=== PATIENT | male | born 1970 | race Caucasian/White ===

== ENCOUNTER 2017-06-10 09:53 | Emergency (ER) | payer OTHER ==
[2017-06-10 10:23] LABS: BASOPHILS % (AUTO) 0.7 %; EOSINOPHILS # (AUTO) 0.3 10^3/uL (0.0-0.7); EOSINOPHILS % (AUTO) 4.9 %; HGB - HEMOGLOBIN 16.4 g/dL (14.0-18.0); LYMPHOCYTES # (AUTO) 1.5 10^3/uL (1.5-3.5); LYMPHOCYTES % (AUTO) 22.2 %; MEAN CORPUSCULAR HEMOGLOBIN 30.5 pg (27.0-31.0); MEAN CORPUSCULAR HGB CONC 34.8 g/dL (32.0-36.0); MEAN CORPUSCULAR VOLUME 87.8 fL (80.0-94.0); MEAN PLATELET VOLUME 6.9 fL (7.4-11.4); MONOCYTES # (AUTO) 0.5 10^3/uL (0.0-1.0); MONOCYTES % (AUTO) 6.8 %; NEUTROPHILS # (AUTO) 4.3 10^3/uL (1.5-6.6); NEUTROPHILS % (AUTO) 65.4 %; PLT - PLATELET COUNT 187 10^3/uL (130-450); RED BLOOD COUNT 5.37 10^6/uL (4.70-6.10); RED CELL DISTRIBUTION WIDTH 12.6 % (12.0-15.0); WHITE BLOOD COUNT 6.6 x10^3/uL (4.8-10.8)
[2017-06-10 10:30] LABS: ALBUMIN 4.2 g/dL (3.2-5.5); ALBUMIN/GLOBULIN RATIO 1.3 (1.0-2.2); BILIRUBIN,TOTAL 0.9 mg/dL (0.2-1.0); CALCIUM 8.8 mg/dL (8.5-10.3); CREATININE 0.9 mg/dL (0.6-1.2); TOTAL PROTEIN 7.4 g/dL (6.7-8.2)
[2017-06-10] MEDS ORDERED: LIDOCAINE VISCOUS 2% 15 ML UDC MM STA (11:10)
[2017-06-10] MEDS ORDERED: MAG HYDROX/AL HYDROX/SIMETH 30 ML UDC PO STA (11:11)
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
[2017-06-10] MEDS ORDERED: KETOROLAC 60 MG/2 ML VIAL IM STA (12:28)
[2017-06-10] MEDS ORDERED: ONDANSETRON ODT 4 MG TABLET TL STA (12:36)
--- NOTE | 2017-06-10 13:55 | CT Report ---
EXAM: CT ABDOMEN AND PELVIS (CT KUB) EXAM DATE: 06/10/2017 01:36 PM. CLINICAL HISTORY: Lower abdomen and LUQ pain. COMPARISONS: None. TECHNIQUE: Routine axial helical CT imaging was performed through the abdomen and pelvis without IV c ontrast. Reconstructions: Coronal and sagittal. In accordance with CT protocol optimization, one or more of the following dose reduction techniques w ere utilized for this exam: automated exposure control, adjustment of mA and/or KV based on patient s ize, or use of iterative reconstructive technique. FINDINGS: Lung Bases: Mild bibasilar atelectasis. Right Kidney/Ureter: No stones, hydronephrosis, or hydroureter. No perinephric fat stranding. Left Kidney/Ureter: No hydroureter. No perinephric fat stranding. 6 mm left mid renal stone. Left renal pelvic fullness with 1.9 cm oblique AP dimension. Other Solid Organs: Noncontrast images of the solid organs are grossly unremarkable. Gallbladder/Bile Ducts: Unremarkable. Peritoneal Cavity: Mild diverticulosis. Splenic flexure, descending and sigmoid colon are collapsed w hich may be from peristalsis or spasm. Normal appendix with air-filled diameter measuring up to 9 mm. Pelvic Organs: No bladder stones or wall thickening. Noncontrast images of the visualized pelvic orga ns are unremarkable. Vasculature: Unremarkable. Other: Mild lumbar spine degenerative changes. IMPRESSION: 1. 6 mm left mid renal stone. Mild fullness of left renal pelvis, however no calyceal dilatation. No perinephric edema. 2. The splenic flexure, descending and sigmoid colon are collapsed which could be related to peristal sis or spasm. No dilated bowel to suggest obstruction. 3. Mild diverticulosis without convincing evidence for diverticulitis. [facility] Referring Provider Line: [phone] SITE ID: [id number]
[2017-06-10 14:55] LABS: BILIRUBIN,URINE NEGATIVE (NEGATIVE); GLUCOSE, URINE (UA) NEGATIVE (NEGATIVE); KETONES,URINE (UA) NEGATIVE (NEGATIVE); LEUKOCYTE ESTERASE, URINE NEGATIVE (NEGATIVE); NITRITE,URINE NEGATIVE (NEGATIVE); OCCULT BLOOD,URINE NEGATIVE (NEGATIVE); PROTEIN,URINE NEGATIVE (NEGATIVE); UROBILINOGEN,URINE 1 (NORMAL) E.U./dL (NORMAL)
[2017-06-10 14:57] LABS: CLARITY,URINE CLEAR (CLEAR)
[2017-06-10 15:30] VITALS: BP 137/100
== END 2017-06-10 15:30 | disposition home or self-care (01) ==
LOC: EDUNIT# → ED 09:53
DX: N13.2 Hydronephrosis with renal and ureteral calculous obstruction (principal); I10 Essential (primary) hypertension; Z87.891 Personal history of nicotine dependence
CPT/HCPCS: 36415; 74176; 80053; 81003; 83690; 84484; 85025; 93005; 96372; 99284; A9270; Q0162; 81001; 87086

== ENCOUNTER 2019-12-17 15:47 | Emergency (ER) | payer SELFPAY ==
[2019-12-17 15:52] VITALS: BP 178/110
--- NOTE | 2019-12-17 16:15 | ED Physician Documentation ---
History of Present Illness - Stated complaint Stated Complaint: EAR PLUGGED UP, EAR PAIN LEFT - Chief complaint Chief Complaint: Heent - History obtained from History obtained from: Patient (For the last week or so he cannot hear out of his left ear and there is pressure there. He is tried a number of home remedies including putting a vacuum strip cleaner on it without relief.) Review of Systems Constitutional: reports: Reviewed and negative Ears: reports: Loss of hearing, Ear pain, Reviewed and negative Nose: reports: Reviewed and negative PD PAST MEDICAL HISTORY - Past Medical History Cardiovascular: Hypertension Musculoskeletal: Chronic back pain - Past Surgical History Past Surgical History: Yes Ortho: Spine surgery - Present Medications Home Medications: Ambulatory Orders Medication Instructions Recorded Confirmed Dicyclomine [Bentyl] 06/10/17 - Allergies Allergies/Adverse Reactions: Allergies Allergy/AdvReac Type Severity Reaction Status Date / Time No Known Drug Allergies Allergy Verified 12/17/19 15:49 - Social History Does the pt smoke?: No Smoking Status: Never smoker Does the pt drink ETOH?: No Does the pt have substance abuse?: No - Immunizations Immunizations are current?: No PD ED PE NORMAL - Vitals Vital signs reviewed: Yes - General General: Alert and oriented X 3, No acute distress - HEENT HEENT: Other (He has cerumen impaction on the left) - Neck Neck: Supple, no meningeal sign, No bony TTP - Neuro Neuro: Alert and oriented X 3, Normal speech Results - Vitals Vitals: Vital Signs - 24 hr 12/17/19 15:49 Temperature 36.5 C Heart Rate 89 Respiratory 16 Rate Blood Pressure 178/110 H O2 Saturation 97 Oxygen O2 Source Room air Procedures - General procedure General procedure: Using syringe irrigation with warm water and peroxide the cerumen was easily removed and his symptoms were resolved. Departure - Departure Disposition: 01 Home, Self Care Clinical Impression: Excessive cerumen in left ear canal Condition: Good Record reviewed to determine appropriate education?: Yes Instructions: Earwax Impacted Comments: Your blood pressure was elevated today on check into the emergency department. This does not mean that you have hypertension, it is a common phenomenon to come to the emergency department and have elevated blood pressure. I recommend that you see your primary care physician within the week to have it rechecked when you are feeling better. Discharge Date/Time: 12/17/19 16:25
== END 2019-12-17 16:25 | disposition home or self-care (01) ==
LOC: ED 15:47
DX: H61.22 Impacted cerumen, left ear (principal); I10 Essential (primary) hypertension
CPT/HCPCS: 69209; 99281; 99283

== ENCOUNTER 2021-08-11 14:30 | Emergency (ER) | payer MEDICAID ==
[2021-08-11 14:46] VITALS: BP 163/104
[2021-08-11] MEDS ORDERED: HYDROcod/ACETAM 5/325 MG TABLET PO STA (15:22)
[2021-08-11] MEDS ORDERED: SULFAMETH/TRIMETH DS 800/160 MG TABLET PO STA (15:22)
[2021-08-11] MEDS ORDERED: cephALEXin 250 MG CAPSULE PO STA (15:22)
[2021-08-11] MEDS ORDERED: BACITRACIN ZINC OINT 1 PACKET TOP STA (15:22)
--- NOTE | 2021-08-11 15:25 | ED Physician Documentation ---
History of Present Illness - Stated complaint Stated Complaint: RT LEG PX - Chief complaint Chief Complaint: Wound - History obtained from History obtained from: Patient - History of Present Illness Timing: How many days ago (several) Pain level max: 8 Pain level now: 6 - Additonal information Additional information: 50-year-old male presents to the emergency department complaining of swelling and pain to the right knee. This started after kneeling on a driveway A few days ago. Gradually has developed increasing redness, swelling and pain. Tetanus up-to-date. Worse with palpation and movement, better with rest. Review of Systems Constitutional: denies: Fever, Chills GI: denies: Nausea, Vomiting, Diarrhea Skin: denies: Rash PD PAST MEDICAL HISTORY - Past Medical History Cardiovascular: Hypertension Musculoskeletal: Chronic back pain - Past Surgical History Past Surgical History: Yes Ortho: Spine surgery - Present Medications Home Medications: Ambulatory Orders Medication Instructions Recorded Confirmed Dicyclomine [Bentyl] 06/10/17 HYDROcod/ACETAM 5/325 [[place] 5/325] 1 - 2 ea PO Q6H PRN #14 tablet 08/11/21 Sulfamethox/Trimeth 800/160 1 each PO BID #14 tablet 08/11/21 [Bactrim Ds 800/160] cephALEXin [Keflex] 500 mg PO Q6H #28 cap 08/11/21 - Allergies Allergies/Adverse Reactions: Allergies Allergy/AdvReac Type Severity Reaction Status Date / Time No Known Drug Allergies Allergy Verified 08/11/21 14:46 - Social History Does the pt smoke?: No Smoking Status: Never smoker Does the pt drink ETOH?: No Does the pt have substance abuse?: No - Immunizations Immunizations are current?: No PD ED PE NORMAL - Vitals Vital signs reviewed: Yes - General General: Alert and oriented X 3, No acute distress - Derm Derm: Warm and dry - Extremities Extremities: Other (4 x 6 cm area of erythema to the anterior aspect of the right knee. Full range of motion of the knee. No joint space tenderness or effusion. There is a small pustule on the anterior aspect.) - Neuro Neuro: Alert and oriented X 3 Results - Vitals Vitals: Vital Signs - 24 hr 08/11/21 14:43 Temperature 36.0 C L Heart Rate 88 Respiratory 16 Rate Blood Pressure 163/104 H O2 Saturation 99 Oxygen O2 Source Room air Procedures - Abscess I&D (location) Right knee Preparation: Lidocaine 1% Incision: Incised with scalpel, Purulent drainage, Culture obtained Other: Pt tolerated well, Dressing applied PD MEDICAL DECISION MAKING - ED course Complexity details: reviewed results, re-evaluated patient, considered differential, d/w patient ED course: 50-year-old male with a right knee cellulitis as well as gravel that was stuck in an anterior wound. The knee was anesthetized with 1% lidocaine. Tolerated well. Excellent anesthesia. A scalpel was used to unroofed the area and the gravel was removed. Minimal drainage. A bandage was applied with topical antibiotics. Will place on oral antibiotics for home as well as pain medication. No evidence of septic joint. Patient states his tetanus is up-to-date. Patient counseled regarding signs and symptoms for which I believe and urgent re-evaluation would be necessary. Patient with good understanding of and agreement to plan and is comfortable going home at this time This document was made in part using voice recognition software. While efforts are made to proofread this document, sound alike and grammatical errors may occur. Departure - Departure Disposition: 01 Home, Self Care Clinical Impression: Cellulitis of knee, right Condition: Good Instructions: ED Infec Skin Cellulitis Follow-Up: your,doctor in 3 days for wound check [Other] Prescriptions: Sulfamethox/Trimeth 800/160 [Bactrim Ds 800/160] 1 each PO BID #14 tablet cephALEXin [Keflex] 500 mg PO Q6H #28 cap HYDROcod/ACETAM 5/325 [[place] 5/325] 1 - 2 ea PO Q6H PRN #14 tablet PRN Reason: Pain Comments: Your prescriptions were sent to the [facility] pharmacy. Please take all antibiotics until gone. Return if you worsen. You should either return here in 2 to 3 days for a wound check or follow-up with your doctor for a wound check. Return sooner if you worsen including spreading of the redness, fevers, body aches etc. I am prescribing a short course of narcotic pain medication for you. These are potentially dangerous and addictive medications that should be used carefully. These medications may constipate you. Take an [id number] stool softener (docusate) twice daily with plenty of water while taking these medications. If you go 24 hours without a bowel movement, take [id number] miralax, per package instructions. Do not drink or drive while taking these medications. If you received narcotic or sedating medications while in the emergency department, do not drive for 24 hours. Store this medication in a safe, secure place and out of reach of children. It is a violation of federal law to give or sell this medication to another person or to use in a manner other than prescribed. The ED will not refill narcotic prescriptions, including prescriptions lost or stolen. To dispose of unwanted medications: 1. [facility] [address] in [place] has a medication drop box. They accept prescription medications (in pill form) Tuesday through Tuesday 9:00 a.m. to 5:00 p.m. 2. The [facility] [employer] accepts prescription medications (in pill form only) for disposal year round. Call for more information. 3. Contact the [facility] for the next [facility] sponsored prescription drug collection event. , [phone], or [phone]; Discharge Date/Time: 08/11/21 15:41
== END 2021-08-11 15:41 | disposition home or self-care (01) ==
LOC: ED 14:30
DX: L03.115 Cellulitis of right lower limb (principal); I10 Essential (primary) hypertension
CPT/HCPCS: 10060; 87070; 87205; 99283; A9270; 87181

== ENCOUNTER 2022-05-02 01:22 | Emergency (ER) | payer MEDICAID ==
[2022-05-02] MEDS ORDERED: SODIUM CHLORIDE 0.9% 1,000 ML IV STA (02:36)
[2022-05-02] MEDS ORDERED: ONDANSETRON 4 MG/2 ML VIAL IVP STA (02:36)
[2022-05-02] MEDS ORDERED: HYDROmorphone 1 MG/ML CARPUJECT IVP STA (02:36)
[2022-05-02] MEDS ORDERED: KETOROLAC 15 MG/ML VIAL IVP STA (02:36)
--- NOTE | 2022-05-02 02:36 | ED Physician Documentation ---
PD HPI ABD PAIN - Stated complaint Stated Complaint: VOMITING/ABDOMINAL PX - Chief complaint Chief Complaint: Abd Pain - History obtained from History obtained from: Patient - History of Present Illness Timing - onset: How many hours ago (3-4) Timing - duration: Hours (3-4) Timing - details: Abrupt onset, Still present Quality: Sharp, Pain Location: Periumbilical, Suprapubic Radiation: Left flank, Right flank Improved by: No: Laying still, Position Worsened by: No: Moving, Breathing Associated symptoms: Nausea, Vomiting (couple of times), Other (The patient started having somewhat of confusion and numbing in his extremities associated with the pain but also vigorous breathing.). No: Fever, Diarrhea, Hematochezia Similar symptoms before: Diagnosis (has had kidney stones in past but not with this presentation.) Review of Systems Unable to obtain: AMS Constitutional: denies: Fever, Chills Nose: denies: Rhinorrhea / runny nose, Congestion Throat: denies: Sore throat Respiratory: denies: Cough GI: reports: Abdominal Pain, Nausea, Vomiting (couple of times). denies: Constipation, Hematemesis Skin: denies: Rash, Lesions Neurologic: reports: Altered mental status (unfocused initially with hyperventiating. coached to calm breathing. Improved with pain meds.). denies: Headache, Head injury PD PAST MEDICAL HISTORY - Past Medical History Cardiovascular: Hypertension : Kidney stones Musculoskeletal: Chronic back pain - Past Surgical History Past Surgical History: Yes Ortho: Spine surgery - Present Medications Home Medications: Ambulatory Orders Medication Instructions Recorded Confirmed Dicyclomine [Bentyl] 06/10/17 HYDROcod/ACETAM 5/325 [Era 5/325] 1 - 2 ea PO Q6H PRN #14 tablet 08/11/21 Sulfamethox/Trimeth 800/160 1 each PO BID #14 tablet 08/11/21 [Bactrim Ds 800/160] cephALEXin [Keflex] 500 mg PO Q6H #28 cap 08/11/21 Docusate Sodium 100Mg Capsule 100 mg PO DAILY #20 cap 05/02/22 [Colace 100Mg Capsule] HYDROcod/ACETAM 5/325 [Era 5/325] 1 ea PO Q6H PRN #18 tablet 05/02/22 Ondansetron Odt [Zofran] 4 mg TL Q6H PRN #10 tablet 05/02/22 - Allergies Allergies/Adverse Reactions: Allergies Allergy/AdvReac Type Severity Reaction Status Date / Time No Known Drug Allergies Allergy Verified 08/11/21 14:46 - Social History Does the pt smoke?: No Smoking Status: Never smoker Does the pt drink ETOH?: No Does the pt have substance abuse?: No - Immunizations Immunizations are current?: No PD ED PE NORMAL - Vitals Vital signs reviewed: Yes - General General: Other (patient hyperventilating, with unfocused eye gaze. he is able to answer questions simply. ) - Neck Neck: Supple, no meningeal sign, No adenopathy - Cardiac Cardiac: RRR, No murmur - Respiratory Respiratory: Clear bilaterally - Abdomen Abdomen: Normal bowel sounds, Soft, Non distended, No organomegaly, Other (Generalized tenderness with some guarding in particular in the periumbilical and lower abdomen. No rigidity.) - Male Male : Deferred - Rectal Rectal: Deferred - Back Back: No spinal TTP, Other (some bilateral CVA tenderness to percussion. ) - Derm Derm: Normal color, Warm and dry - Extremities Extremities: No edema, No calf tenderness / cord - Neuro Neuro: No motor deficit, No sensory deficit Results - Vitals Vitals: Vital Signs - 24 hr 05/02/22 05/02/22 05/02/22 02:25 02:45 03:09 Temperature 36.1 C L Heart Rate 78 93 86 Respiratory 24 34 H 14 Rate Blood Pressure 194/113 H 181/110 H O2 Saturation 98 94 95 If not protocol 4 : Oxygen Flow, liters/minute 05/02/22 05/02/22 05/02/22 03:21 03:43 04:10 Temperature 36.0 C L 35.8 C L Heart Rate 86 90 89 Respiratory 21 16 13 Rate Blood Pressure 180/110 H 164/111 H 157/105 H O2 Saturation 94 98 100 If not protocol 4 4 4 : Oxygen Flow, liters/minute 05/02/22 05/02/22 05/02/22 05:00 05:32 05:58 Temperature 36.2 C L Heart Rate 88 87 87 Respiratory 15 14 13 Rate Blood Pressure 157/96 H 147/94 H 157/87 H O2 Saturation 97 98 97 If not protocol : Oxygen Flow, liters/minute 05/02/22 06:29 Temperature 35.9 C L Heart Rate 72 Respiratory 19 Rate Blood Pressure 149/87 H O2 Saturation 97 If not protocol : Oxygen Flow, liters/minute Oxygen O2 Source Room air Oxygen Flow Rate 4 - Labs Labs: Laboratory Tests 05/02/22 05/02/22 05/02/22 02:45 02:45 03:00 WBC 8.6 RBC 5.09 Hgb 14.8 Hct 46.1 MCV 90.6 MCH 29.1 MCHC 32.1 RDW 12.0 Plt Count 184 MPV 8.5 Neut # (Auto) 6.7 H Lymph # (Auto) 1.2 L [place] # (Auto) 0.5 Eos # (Auto) 0.1 Baso # (Auto) 0.0 Absolute Nucleated RBC 0.00 Nucleated RBC % 0.0 Sodium 135 Potassium 3.7 Chloride 102 Carbon Dioxide 26 Anion Gap 7.0 BUN 19 Creatinine 1.1 Estimated GFR (MDRD) 70 L Glucose 114 H Lactic Acid TNP Calcium 9.0 Magnesium 2.0 Total Bilirubin 0.7 AST 26 ALT 28 Alkaline Phosphatase 76 Total Protein 7.1 Albumin 4.1 Globulin 3.0 Albumin/Globulin Ratio 1.4 Lipase 32 Urine Color Urine Clarity Urine pH Ur Specific [place] Urine Protein Urine Glucose (UA) Urine Ketones Urine Occult Blood Urine Nitrite Urine Bilirubin Urine Urobilinogen Ur Leukocyte Esterase Ur Microscopic Review Urine Culture Comments Ethyl Alcohol < 5.0 05/02/22 03:00 WBC RBC Hgb Hct MCV MCH MCHC RDW Plt Count MPV Neut # (Auto) Lymph # (Auto) [place] # (Auto) Eos # (Auto) Baso # (Auto) Absolute Nucleated RBC Nucleated RBC % Sodium Potassium Chloride Carbon Dioxide Anion Gap BUN Creatinine Estimated GFR (MDRD) Glucose Lactic Acid Calcium Magnesium Total Bilirubin AST ALT Alkaline Phosphatase Total Protein Albumin Globulin Albumin/Globulin Ratio Lipase Urine Color YELLOW Urine Clarity CLEAR Urine pH 8.0 H Ur Specific [place] 1.020 Urine Protein NEGATIVE Urine Glucose (UA) NEGATIVE Urine Ketones NEGATIVE Urine Occult Blood TRACE-INTA Urine Nitrite NEGATIVE Urine Bilirubin NEGATIVE Urine Urobilinogen 0.2 (NORMAL) Ur Leukocyte Esterase NEGATIVE Ur Microscopic Review NOT INDICATED Urine Culture Comments NOT INDICATED Ethyl Alcohol - Rads (name of study) abd/pelvic CT Radiology: Prelim report reviewed (renal stone left 1.5 cm with some hydronepr osis. Umbilical hernia with fat and bowel, but no iflammation nor obstruction. Otherwise normal scan.), See rad report PD MEDICAL DECISION MAKING - ED course Complexity details: reviewed results (no significant findings. Might be incidental stone with some hyro. Might be causing the pain if was blocking flow. Consider temporary incarceration of umbilical hernia, since most of the pain was mid abdomen. Seems mainly resolved now on recheck.), re-evaluated patient (improved pain and patient sleeping/resting. He did have lower sats when relaxed after meds, in supine position. Seems c/w sleep apnea. Tenderness is considerably lessened. ), considered differential, d/w patient Departure - Departure Disposition: Home, Self Care Clinical Impression: Kidney stone on left side Abdominal pain Qualifiers: Abdominal location: lower abdomen, unspecified Qualified Code(s): R10.30 - Lower abdominal pain, unspecified Umbilical hernia Qualifiers: Obstruction and gangrene presence: without obstruction or gangrene Qualified Code(s): K42.9 - Umbilical hernia without obstruction or gangrene Condition: Stable Record reviewed to determine appropriate education?: Yes Instructions: ED Abdominal Pain Unkn Cause Male Follow-Up: Jordin Armando MD [Physician No Access] - Dari Winslow MD [Provider Admit Priv/Credential] - [facility] [Provider Group] [facility] [place] [Provider Group] Prescriptions: Docusate Sodium 100Mg Capsule [Colace 100Mg Capsule] 100 mg PO DAILY #20 cap HYDROcod/ACETAM 5/325 [Era 5/325] 1 ea PO Q6H PRN #18 tablet PRN Reason: Pain Ondansetron Odt [Zofran] 4 mg TL Q6H PRN #10 tablet PRN Reason: Nausea / Vomiting Comments: Your CT scan shows a 1.5 cm kidney stone in the left kidney causing slight swelling of the left kidney. It is large enough that it would not pass on its own. Follow-up with the urologist you have seen in [place] or one of the others in [facility] that I listed. If you need a referral from primary care, continue with your attempts at finding primary care. I listed a couple of groups in [place] and you to have to call and see if they take your insurance. Your insurance would likely give you a list of available providers as well. Its unclear whether the pain episode you had this evening is from the kidney stone as your pain seemed to more generalized and lower in the abdomen. You do have an umbilical hernia and consideration would be that the hernia got temporarily trapped in caused a pressure raining and blockage of your intestine. It does not appear blocked at this time however. I would suggest staying well-hydrated with regular fluids and be sure to have very soft stools and take it daily stool softener. This minimizes the amount of pressure in the intestine. Use Tylenol every 4-6 hours if needed for pain or hydrocodone if needed for worse pain. I also wrote a prescription for ondansetron if needed for nausea. Recheck if not improved well over the next several days. Return if worse again. I am prescribing a short course of narcotic pain medication for you. These are potentially dangerous and addictive medications that should be used carefully. These medications may constipate you. Take an [id number] stool softener such as docusate twice daily with plenty of water while taking these medications. If you go 24 hours without a bowel movement, take [id number] MiraLAX, per package instructions. Do not drink or drive while taking these medications. If you received narcotic or sedating medications while in the emergency department do not drive for 24 hours. Store this medication in a safe, secure place and out of reach of children. It is a violation of federal law to give or sell this medication to another person or to use in a manner other than prescribed. The ED will not refill narcotic prescriptions, including prescriptions lost or stolen. You can dispose of unwanted medications at the [facility]'s office or at several pharmacies such as [facility]. Discharge Date/Time: 05/02/22 06:42
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
[2022-05-02 02:50] LABS: BASOPHILS % (AUTO) 0.5 %; EOSINOPHILS # (AUTO) 0.1 10^3/uL (0.0-0.7); EOSINOPHILS % (AUTO) 1.6 %; HCT - HEMATOCRIT 46.1 % (42.0-52.0); HGB - HEMOGLOBIN 14.8 g/dL (14.0-18.0); LYMPHOCYTES # (AUTO) 1.2 10^3/uL (1.5-3.5); MEAN CORPUSCULAR HEMOGLOBIN 29.1 pg (27.0-31.0); MEAN CORPUSCULAR HGB CONC 32.1 g/dL (32.0-36.0); MEAN CORPUSCULAR VOLUME 90.6 fL (80.0-94.0); MEAN PLATELET VOLUME 8.5 fL (7.4-11.4); MONOCYTES # (AUTO) 0.5 10^3/uL (0.0-1.0); MONOCYTES % (AUTO) 5.8 %; NEUTROPHILS # (AUTO) 6.7 10^3/uL (1.5-6.6); NEUTROPHILS % (AUTO) 77.8 %; PLT - PLATELET COUNT 184 10^3/uL (130-450); RED BLOOD COUNT 5.09 10^6/uL (4.70-6.10); WHITE BLOOD COUNT 8.6 x10^3/uL (4.8-10.8)
[2022-05-02 03:05] LABS: ALBUMIN 4.1 g/dL (3.2-5.5); ALBUMIN/GLOBULIN RATIO 1.4 (1.0-2.2); ALKALINE PHOSPHATASE 76 IU/L (42-121); ALT ALANINE AMINOTRANSFERASE 28 IU/L (10-60); AST ASPARTATE AMINOTRANSFERASE 26 IU/L (10-42); BILIRUBIN,TOTAL 0.7 mg/dL (0.2-1.0); BUN - BLOOD UREA NITROGEN 19 mg/dL (6-20); CARBON DIOXIDE - CO2 26 mmol/L (21-32); CHLORIDE 102 mmol/L (101-111); CREATININE 1.1 mg/dL (0.6-1.2); ETOH - ETHANOL < 5.0 mg/dL; GFR - MDRD 70 (>89); GLUCOSE 114 mg/dL (70-100); LIPASE 32 U/L (22-51); POTASSIUM 3.7 mmol/L (3.5-5.0); SODIUM 135 mmol/L (135-145); TOTAL PROTEIN 7.1 g/dL (6.7-8.2)
[2022-05-02 03:16] LABS: BILIRUBIN,URINE NEGATIVE (NEGATIVE); CLARITY,URINE CLEAR (CLEAR); GLUCOSE, URINE (UA) NEGATIVE (NEGATIVE); KETONES,URINE (UA) NEGATIVE (NEGATIVE); LEUKOCYTE ESTERASE, URINE NEGATIVE (NEGATIVE); NITRITE,URINE NEGATIVE (NEGATIVE); OCCULT BLOOD,URINE TRACE-INTA (NEGATIVE); PROTEIN,URINE NEGATIVE (NEGATIVE); UROBILINOGEN,URINE 0.2 (NORMAL) E.U./dL (NORMAL)
[2022-05-02] MEDS ORDERED: iohexoL-300 100 ML VIAL IVP ONE (03:42)
[2022-05-02] MEDS ORDERED: iohexoL-300 100 ML VIAL ONE (04:04)
[2022-05-02] MEDS ORDERED: MORPHINE 2 MG/ML CARPUJECT IVP STA (05:37)
[2022-05-02] MEDS ORDERED: oxyCODONE/ACET 5/325 Prepack 4 PO STA (05:37)
[2022-05-02] MEDS ORDERED: ONDANSETRON ODT 4 MG Prepack 2 TL PRN (05:37)
[2022-05-02 06:30] VITALS: BP 149/87
--- NOTE | 2022-05-02 07:38 | CT Report ---
PROCEDURE: CT abdomen pelvis with contrast INDICATIONS: Abdominal pain, acute, nonlocalized CONTRAST: 100 ML OMNI 300 TECHNIQUE: After the administration of contrast, 5 mm thick sections acquired from the diaphragms to the sym physis. 5 mm thick coronal and sagittal reformats were acquired. For radiation dose reduction, the following was used: automated exposure control, adjustment of mA and/or kV according to patient size . COMPARISON: 06/10/2017 FINDINGS: Image quality: Excellent. ABDOMEN: Lung bases: Lung bases are clear. Heart size is normal. Solid organs: Liver and spleen are normal in size and enhancement. Gallbladder unremarkable. Bilia ry system is non dilated. Pancreas enhances normally. No adrenal nodules. Moderate left-sided hydro nephrosis associated with a 1.5 cm calculus the left renal pelvis. Extrarenal pelvis noted as well. R ight kidney unremarkable without hydronephrosis. Peritoneum and bowel: Bowel loops demonstrate normal wall thickness and caliber. No free fluid or a ir. Multiple diverticula arise from the sigmoid colon without evidence of diverticulitis. Nodes and vessels: No retroperitoneal or mesenteric adenopathy by size criteria. Aorta and inferior vena cava are normal in size. Miscellaneous: No ventral hernias. PELVIS: Genitourinary: Bladder wall thickness is normal. Miscellaneous: Bilateral fat-containing inguinal hernias noted. Small periumbilical hernia contains a loop of bowel without obstruction. Bones: No suspicious bony lesions. No vertebral body compression fractures. IMPRESSION: 1. Moderate left hydronephrosis associated with 1.5 cm calculus in the left renal pelvis. Incidental extrarenal pelvis present as well. 2. Incidental inguinal and periumbilical hernias as well as sigmoid diverticulosis Note: Final report is concordant with preliminary interpretation provided by [employer] Reviewed by: Lavon Glover MD on 05/02/2022 6:37 AM [place] Approved by: Lavon Glover MD on 05/02/2022 6:37 AM [facility] Station ID: [id number]
== END 2022-05-02 06:42 | disposition home or self-care (01) ==
LOC: ED 01:22
DX: N20.0 Calculus of kidney (principal); I10 Essential (primary) hypertension; K42.9 Umbilical hernia without obstruction or gangrene
CPT/HCPCS: 36415; 74177; 80053; 80320; 81003; 83690; 83735; 85025; 96361; 96374; 96375; 99282; 99285; J1170; Q9967; 81001; 83605; 87086

== ENCOUNTER 2022-09-08 15:42 | Outpatient (CLI) | payer MEDICAID ==
[2022-09-08 16:38] LABS: BASOPHILS % (AUTO) 0.6 %; EOSINOPHILS # (AUTO) 0.4 10^3/uL (0.0-0.7); EOSINOPHILS % (AUTO) 5.4 %; HCT - HEMATOCRIT 46.9 % (42.0-52.0); HGB - HEMOGLOBIN 15.1 g/dL (14.0-18.0); LYMPHOCYTES # (AUTO) 1.7 10^3/uL (1.5-3.5); LYMPHOCYTES % (AUTO) 25.9 %; MEAN CORPUSCULAR HEMOGLOBIN 28.9 pg (27.0-31.0); MEAN CORPUSCULAR HGB CONC 32.2 g/dL (32.0-36.0); MEAN CORPUSCULAR VOLUME 89.8 fL (80.0-94.0); MEAN PLATELET VOLUME 8.3 fL (7.4-11.4); MONOCYTES # (AUTO) 0.5 10^3/uL (0.0-1.0); MONOCYTES % (AUTO) 7.4 %; NEUTROPHILS % (AUTO) 60.4 %; PLT - PLATELET COUNT 172 10^3/uL (130-450); RED BLOOD COUNT 5.22 10^6/uL (4.70-6.10); RED CELL DISTRIBUTION WIDTH 12.3 % (12.0-15.0); WHITE BLOOD COUNT 6.6 x10^3/uL (4.8-10.8)
[2022-09-08 17:07] LABS: ALBUMIN/GLOBULIN RATIO 1.2 (1.0-2.2); ALKALINE PHOSPHATASE 65 IU/L (42-121); ALT ALANINE AMINOTRANSFERASE 37 IU/L (10-60); AST ASPARTATE AMINOTRANSFERASE 27 IU/L (10-42); BILIRUBIN,TOTAL 0.8 mg/dL (0.2-1.0); BUN - BLOOD UREA NITROGEN 12 mg/dL (6-20); CALCIUM 8.7 mg/dL (8.5-10.3); CARBON DIOXIDE - CO2 27 mmol/L (21-32); CHLORIDE 104 mmol/L (101-111); CHOL/HDL RATIO 5.1 (<5.0); CHOLESTEROL 187 mg/dL; CREATININE 0.9 mg/dL (0.6-1.2); GFR - MDRD 88 (>89); GLUCOSE 98 mg/dL (70-100); HDL CHOLESTEROL 37 mg/dL; LDL CHOLESTEROL,CALCULATED 139 mg/dL; LDL/HDL RATIO 3.8 (<3.6); SODIUM 138 mmol/L (135-145); TOTAL PROTEIN 7.3 g/dL (6.7-8.2); TRIGLYCERIDES 55 mg/dL; VLDL CHOLESTEROL 11 mg/dL
[2022-09-08 17:18] LABS: THYROID STIMULATING HORMONE 2.93 uIU/mL (0.34-5.60)
== END 2022-09-08 15:43 | disposition home or self-care (01) ==
LOC: LAB 15:42
PROVIDERS: ATTEND Nurse Practitioner
DX: I10 Essential (primary) hypertension (principal); Z13.220 Encounter for screening for lipoid disorders; R53.83 Other fatigue
CPT/HCPCS: 36415; 80050; 80061; 83721

== ENCOUNTER 2022-09-17 14:11 | Outpatient (CLI) | payer MEDICAID ==
--- NOTE | 2022-09-17 16:01 | XRAY Report ---
PROCEDURE: Chest 2 View X-Ray INDICATIONS: CHEST PAIN TECHNIQUE: 2 views of the chest were acquired. COMPARISON: None. FINDINGS: Surgical changes and devices: Cervical spinal fusion hardware is noted. Lungs and pleura: No pleural effusions or pneumothorax. Mild prominence of the central pulmonary vas culature which is nonspecific. Lungs are otherwise clear. Mediastinum: Mediastinal contours are normal. Heart size is normal. Bones and chest wall: No suspicious bony abnormalities. Soft tissues appear unremarkable. IMPRESSION: Mild prominence of the central pulmonary vasculature. No acute pulmonary opacity. Reviewed by: Meek Marquez MD on 09/17/2022 4:00 PM PDT Approved by: Meek Marquez MD on 09/17/2022 4:00 PM PDT Station ID: [id number]
== END 2022-09-17 14:12 | disposition home or self-care (01) ==
LOC: DI 14:11
PROVIDERS: ATTEND Nurse Practitioner
DX: R07.9 Chest pain, unspecified (principal)

== ENCOUNTER 2022-10-14 07:09 | Outpatient (CLI) | payer MEDICAID ==
[2022-10-14 07:30] LABS: BILIRUBIN,URINE NEGATIVE (NEGATIVE); GLUCOSE, URINE (UA) NEGATIVE (NEGATIVE); KETONES,URINE (UA) NEGATIVE (NEGATIVE); LEUKOCYTE ESTERASE, URINE NEGATIVE (NEGATIVE); NITRITE,URINE NEGATIVE (NEGATIVE); OCCULT BLOOD,URINE MODERATE (NEGATIVE); PROTEIN,URINE 30 mg/dL (NEGATIVE); UROBILINOGEN,URINE 0.2 (NORMAL) E.U./dL (NORMAL)
[2022-10-14] MEDS ORDERED: iohexoL-300 100 ML VIAL ONE (07:30)
[2022-10-14] MEDS ORDERED: DIATR MEGLU/DIATRIZOATE SODIUM 120 ML BOTTLE ONE (07:32)
[2022-10-14 07:33] LABS: CREATININE 0.9 mg/dL (0.6-1.2)
[2022-10-14 07:39] LABS: CREATININE,URINE 175.7 mg/dL; MICROALBUM/CREATININE RATIO,UR 127.5 ug/mg (<30.0); MICROALBUMIN,URINE 22.4 mg/dL (0-300.0)
[2022-10-14 07:47] LABS: BACTERIA,URINE Rare /HPF (None Seen); CLARITY,URINE CLEAR (CLEAR); MUCUS,URINE Few Strands; SQUAMOUS EPITHELIAL CELL,UR RARE Squamous (<= Few); WBC,URINE 0-3 /HPF (0-3)
--- NOTE | 2022-10-14 10:30 | CT Report ---
PROCEDURE: ABDOMEN/PELVIS W INDICATIONS: RUQ ABD PAIN CONTRAST: 100ml Omnipaque 300 TECHNIQUE: After the administration of oral and intravenous contrast, 5 mm thick sections acquired from the diap hragms to the symphysis. 5 mm thick coronal and sagittal reformats were acquired. For radiation dos e reduction, the following was used: automated exposure control, adjustment of mA and/or kV accordin g to patient size. COMPARISON: CT abdomen pelvis 05/02/2022 FINDINGS: Visualized lung bases: No pleural effusion. Liver and biliary tree: No suspect focal hepatic lesion. No biliary ductal dilation. Gallbladder: No radiopaque cholelithiasis. Spleen: Unremarkable. Pancreas: Unremarkable. Adrenal glands: Unremarkable. Kidneys and ureters: Similar moderate left hydronephrosis. A 1.4 cm stone is redemonstrated at the le ft renal pelvis. Mid-distal left ureter are normal caliber. No right hydronephrosis. Gastrointestinal tract: No bowel obstruction. Mild predominantly sigmoid colonic diverticulosis witho ut evidence of acute diverticulitis. No evidence of acute appendicitis. Peritoneal cavity: No free air or free fluid. Bladder: Unremarkable. Pelvic organs: Unremarkable CT appearance. Vasculature: No abdominal aortic aneurysm. Abdominal wall: Redemonstrated periumbilical hernia containing fat and nondilated small bowel. Probab le bilateral fat-containing inguinal hernias. Musculoskeletal: Degenerative change of the spine. IMPRESSION: 1. Redemonstrated moderate left hydronephrosis with configuration raising possibility of UPJ obstruct ion, however a stone is present at the left renal pelvis as before. 2. A small periumbilical hernia containing fat and nondilated small bowel is present as before. Reviewed by: Meek Martínez MD on 10/14/2022 10:28 AM PDT Approved by: Meek Martínez MD on 10/14/2022 10:28 AM PDT Station ID: [id number]
[2022-10-14] MEDS ORDERED: iohexoL-300 100 ML VIAL IVP ONE (10:52)
[2022-10-14] MEDS ORDERED: DIATRIZOATE MEGLU/DIATRIZO SOD 30 ML BOTTLE PO ONE (10:52)
[2022-10-14 11:31] LABS: ESTIMATED AVERAGE GLUCOSE 114 mg/dL (70-100); HEMOGLOBIN A1c% 5.6 % (4.27-6.07)
== END 2022-10-14 07:10 | disposition home or self-care (01) ==
LOC: LAB 07:09
PROVIDERS: ATTEND Nurse Practitioner
DX: R10.11 Right upper quadrant pain (principal); E11.9 Type 2 diabetes mellitus without complications; N13.30 Unspecified hydronephrosis; N20.0 Calculus of kidney; K42.9 Umbilical hernia without obstruction or gangrene
CPT/HCPCS: 36415; 74177; 81001; 82043; 82565; 82570; 83036; Q9963; Q9967; 87086

== ENCOUNTER 2022-10-27 08:00 | Outpatient (CLI) | payer MEDICAID | END 2022-10-27 23:59 | disposition home or self-care (01) | LOC: LAB.N 08:00 | PROVIDERS: ATTEND Nurse Practitioner | DX: M70.30 Other bursitis of elbow, unspecified elbow (principal) | CPT/HCPCS: 87070; 87205 ==

== ENCOUNTER 2022-10-28 11:10 | Outpatient (CLI) | payer MEDICAID ==
--- NOTE | 2022-10-28 11:45 | XRAY Report ---
PROCEDURE: Elbow 3 View RT INDICATIONS: BURSITIS,ELBOW TECHNIQUE: 4 views of the elbow were acquired. COMPARISON: None. FINDINGS: Bones: No fractures or dislocations. No suspicious bony lesions. Trace air over the elbow bursa, likely postprocedural. Soft tissues: No effusion. No suspicious soft tissue calcifications or masses. IMPRESSION: Postprocedural gas overlying the elbow bursa. Reviewed by: Kaushal Whatley on 10/28/2022 11:44 AM PDT Approved by: Kaushal Whatley on 10/28/2022 11:44 AM PDT Station ID: [id number]
== END 2022-10-28 11:11 | disposition home or self-care (01) ==
LOC: DI 11:10
PROVIDERS: ATTEND Registered Nurse
DX: M70.30 Other bursitis of elbow, unspecified elbow (principal)

== ENCOUNTER 2023-01-20 14:57 | Outpatient (CLI) | payer MEDICAID | END 2023-01-20 14:58 | disposition home or self-care (01) | LOC: DI 14:57 | PROVIDERS: ATTEND Nurse Practitioner | DX: R07.9 Chest pain, unspecified (principal); I49.3 Ventricular premature depolarization; I51.7 Cardiomegaly | CPT/HCPCS: 93306 ==

== ENCOUNTER 2023-05-05 11:26 | Outpatient (CLI) | payer MEDICAID ==
--- NOTE | 2023-05-05 12:00 | Sleep Patient Instructions ---
Sleep Center Visit Summary - Patient Visit Information Reason for Visit: Sleep study follow-up - Patient Instructions Instructions Attached: CPAP Dc, CPAP Additional Instructions: You are being started on CPAP therapy with pressure setting at 4-15 cmH2O. You will need to call the sleep care office to set up your follow up once you have your APAP machine and we will schedule a visit to check compliance and response to therapy at that time. You may call the office with any concerns about pressure feeling too low or too much for adjustment, if needed. You should contact DME supplier for any questions or concerns about mask or equipment. Please call office to schedule a follow up appointment in the sleep care office one month after obtaining new device. - Clinic Information Contact: [facility] [address] [place] [address] [email or web address] T: [phone]
--- NOTE | 2023-05-05 12:02 | SLEEP CARE CONSULTATION ---
Information from patient questionnaire entered by Ana Junior. I have reviewed and concur with the information entered by Ana Junior. This document represents the service I personally performed and the decisions made by me, Hannah Baron ARNP. History of Present Illness Service Date and Time: 05/05/2023 112 Initial [place] Sleepiness Scale score: 15 (03/24/23) Current [place] Sleepiness Scale score: 11 Additional HPI information: GÉNESIS GATES returns for follow up and results of the recently performed home sleep study. The sleep study showed moderate obstructive sleep apnea with an average AHI of 28.7 and kathrin oxygen saturation of 87%. I explained the pathophysiology behind obstructive sleep apnea. We then spent quite a bit of time discussing different treatment options. For mild obstructive sleep apnea, surgery and oral appliance are alternatives to nasal CPAP therapy but in moderate or severe cases, nasal CPAP is the most effective and reliable treatment. I reviewed the impact of weight changes on sleep apnea and strongly recommended losing weight. After some discussion, the patient opted to go with the nasal CPAP therapy. Nasal autoCPAP set at 4-15 cmH20 will be ordered with rationale explained. A manual titration study will be ordered if unable to find optimal pressure with office adjustments. I explained how CPAP machine works and what to expect when using the machine. Using CPAP every night in order to get used to it was emphasized. Patient advised to put CPAP mask on before getting into bed so as not to fall asleep without CPAP. The patient was instructed to call the CPAP supplier to discuss any mechanical problem that may occur. If the mask given is uncomfortable or is difficult to keep on through the night even with adjustment, contact the CPAP supplier as many will replace with another mask style if notified before 30 days. If snoring or perceives is not getting enough air or too much air from the machine, notify this office. Patient does not drink alcohol. Patient was cautioned about risks of drowsy driving until sleepiness symptoms resolve. Patient denies drowsy driving. Sleep Study - Results Type of Sleep Study: Home sleep study (COMPLETED 04/14/23) Prior sleep studies: No Polysomnography/Home Sleep Study results: Physician Impression: The quality of the study is good. The length of the study is [id number] (< 240 minutes). Please also see the tabulated and graphic data. 1. Obstructive Sleep Apnea-Hypopnea (ICD-10 G47.33), moderate, with an AHI of 28.7/hr and kathrin SaO2 of 87%. During the study, the patient had 50 apneas (50 obstructive, 0 central, 0 mixed) and 28 hypopneas. The longest episode lasted 62.0 seconds. The patient did not sleep supine during this study (supine AHI was 0.0 and non-supine, 28.76). 2. Hypoxemia (ICD-10 R09.02), mild, with the lowest oxygen saturation of 87 % and 2.6 minutes with SaO2 under 90%. Baseline oxygen saturation was normal (Average oxygen saturation was 94%). Allergies and Home Medications Known drug allergies: No Drug allergies reviewed: Yes Home medication list reviewed: Yes (no changes) Allergy and home medication list: Allergies No Known Drug Allergies Allergy (Verified 05/04/23 09:09) Review of Systems Review of systems same as previous: Yes (no changes) Physical Exam Vital signs obtained and entered by: HANNAH SANTILLAN-C Blood Pressure: 148/84 (left arm) Cuff size: Large Heart Rate: 82 O2 Saturation: 96 Height: 6 ft 1 in Weight: 298 lb 3.2 oz Body Mass Index: 39.3 BMI Classification: Obese Impression and Plan 1. Obstructive Sleep Apnea-Hypopnea Syndrome, moderate, with lowest oxygen saturation of 87%. Obviously this is the cause of the patients symptoms of unrefreshed sleep, and excessive daytime sleepiness. Positive pressure therapy could benefit hypertension, depression and attention deficit. As mentioned above, the patient will be started on nasal autoCPAP therapy with pressure set at 4-15 cmH2O. A manual titration study will be completed if unable to find optimal treatment pressure with office adjustments. Compliance guidelines also reviewed. A copy of compliance guidelines will be given for reference at check out. 2. Hypoxemia, mild, with a kathrin oxygen saturation of 87% and 2.6 minutes spent under 90%. The baseline oxygen saturation was normal with an average oxygen saturation of 94%. 2. Obesity, unspecified. Currently patients BMI is 39.3. Obesity increases the risk of apnea, CPAP pressure requirements and overall health risks especially cardiovascular and diabetes. Thus patient is advised to lose weight. * Nasal auto CPAP therapy, pressure at 4-15 cm H2O. * Attempt to lose weight. * Avoid alcohol consumption near bedtime. * Avoid supine sleep until using CPAP. * The patient is again cautioned about driving until sleepiness completely resolves. * Return one month after CPAP obtained. I will assess response to therapy and compliance at that time. Counseling Topics: Weight loss health impact Prescriptions: Auto CPAP Visit Type: In Office Time Spent with Patient (minutes): 20 Provider Statement: I spent 100% of the Face to Face Visit with the patient with greater than 50% spent counseling the patient and coordination of care.
[2023-05-05 12:10] VITALS: BP 148/84; O2SAT 96
== END 2023-05-05 11:27 | disposition home or self-care (01) ==
LOC: SC 11:26
PROVIDERS: ATTEND Nurse Practitioner Family
DX: G47.33 Obstructive sleep apnea (adult) (pediatric) (principal); R09.02 Hypoxemia; E66.9 Obesity, unspecified; Z68.39 Body mass index [BMI] 39.0-39.9, adult
CPT/HCPCS: 99212; 99213

== ENCOUNTER 2023-07-14 10:39 | Outpatient (CLI) | payer MEDICAID ==
[2023-07-14 17:39] LABS: BASOPHILS % (AUTO) 0.6 %; EOSINOPHILS # (AUTO) 0.3 10^3/uL (0.0-0.7); HCT - HEMATOCRIT 48.1 % (42.0-52.0); HGB - HEMOGLOBIN 15.2 g/dL (14.0-18.0); LYMPHOCYTES # (AUTO) 1.5 10^3/uL (1.5-3.5); LYMPHOCYTES % (AUTO) 22.1 %; MEAN CORPUSCULAR HEMOGLOBIN 28.6 pg (27.0-31.0); MEAN CORPUSCULAR HGB CONC 31.6 g/dL (32.0-36.0); MEAN CORPUSCULAR VOLUME 90.6 fL (80.0-94.0); MEAN PLATELET VOLUME 9.6 fL (7.4-11.4); MONOCYTES # (AUTO) 0.5 10^3/uL (0.0-1.0); MONOCYTES % (AUTO) 7.1 %; NEUTROPHILS # (AUTO) 4.5 10^3/uL (1.5-6.6); NEUTROPHILS % (AUTO) 66.1 %; PLT - PLATELET COUNT 196 10^3/uL (130-450); RED BLOOD COUNT 5.31 10^6/uL (4.70-6.10); RED CELL DISTRIBUTION WIDTH 12.2 % (12.0-15.0); WHITE BLOOD COUNT 6.8 x10^3/uL (4.8-10.8)
[2023-07-14 17:50] LABS: ALBUMIN/GLOBULIN RATIO 1.5 (1.0-2.2); BILIRUBIN,TOTAL 0.9 mg/dL (0.2-1.0); CALCIUM 9.2 mg/dL (8.5-10.3); CREATININE 0.9 mg/dL (0.6-1.3); POTASSIUM 3.7 mmol/L (3.5-4.5); TOTAL PROTEIN 6.6 g/dL (6.4-8.9)
[2023-07-14 18:01] LABS: THYROID STIMULATING HORMONE 2.61 uIU/mL (0.34-5.60)
[2023-07-14 21:19] LABS: ESTIMATED AVERAGE GLUCOSE 105 mg/dL (70-100); HEMOGLOBIN A1c% 5.3 % (4.27-6.07)
== END 2023-07-14 10:40 | disposition home or self-care (01) ==
LOC: LAB.N 10:39
PROVIDERS: ATTEND Nurse Practitioner
DX: E11.9 Type 2 diabetes mellitus without complications (principal); R41.82 Altered mental status, unspecified; R60.9 Edema, unspecified
CPT/HCPCS: 36415; 80050; 80307; 80324; 80359; 81599; 82977; 83036

== ENCOUNTER 2023-10-12 09:44 | Outpatient (CLI) | payer MEDICAID ==
--- NOTE | 2023-10-12 14:57 | XRAY Report ---
PROCEDURE: Tib/Fib LT INDICATIONS: ABRASION, LEFT LOWER LEG TECHNIQUE: 2 views of the tibia and fibula were acquired. COMPARISON: None. FINDINGS: Bones: No acute fractures or dislocations. No suspicious bony lesions. Soft tissues: Nonspecific soft tissue edema. No soft tissue gas is seen. IMPRESSION: Nonspecific soft tissue edema. No acute osseous abnormality. If there is clinical concern or persiste nt symptoms, additional imaging such as repeat radiographs or advanced imaging (e.g. CT, MRI) may be helpful for further evaluation. Reviewed by: Meek Marquez MD on 10/12/2023 2:55 PM PDT Approved by: Meek Marquez MD on 10/12/2023 2:55 PM PDT Station ID: [id number]
== END 2023-10-12 09:45 | disposition home or self-care (01) ==
LOC: DI.N 09:44
PROVIDERS: ATTEND Registered Nurse
DX: S80.812A Abrasion, left lower leg, initial encounter (principal); R60.0 Localized edema

== ENCOUNTER 2023-11-01 15:02 | Outpatient (CLI) | payer MEDICAID | END 2023-11-01 15:03 | disposition home or self-care (01) | LOC: DI 15:02 | PROVIDERS: ATTEND Nurse Practitioner | DX: R07.9 Chest pain, unspecified (principal) | CPT/HCPCS: 93307 ==

== ENCOUNTER 2023-11-04 20:12 | Outpatient (CLI) | payer MEDICAID | END 2023-11-04 20:13 | disposition EMS.NT | LOC: EMS 20:12 | DX: R40.4 Transient alteration of awareness (principal); R07.89 Other chest pain; G89.29 Other chronic pain; R00.0 Tachycardia, unspecified ==

== ENCOUNTER 2023-11-06 10:22 | Emergency (ER) | payer MEDICAID, OTHER ==
[2023-11-06 10:57] LABS: BASOPHILS % (AUTO) 0.3 %; EOSINOPHILS # (AUTO) 0.2 10^3/uL (0.0-0.7); EOSINOPHILS % (AUTO) 3.7 %; HCT - HEMATOCRIT 47.2 % (42.0-52.0); HGB - HEMOGLOBIN 14.9 g/dL (14.0-18.0); LYMPHOCYTES % (AUTO) 16.9 %; MEAN CORPUSCULAR HEMOGLOBIN 28.4 pg (27.0-31.0); MEAN CORPUSCULAR HGB CONC 31.6 g/dL (32.0-36.0); MEAN CORPUSCULAR VOLUME 89.9 fL (80.0-94.0); MEAN PLATELET VOLUME 8.4 fL (7.4-11.4); MONOCYTES # (AUTO) 0.4 10^3/uL (0.0-1.0); MONOCYTES % (AUTO) 7.1 %; NEUTROPHILS # (AUTO) 4.2 10^3/uL (1.5-6.6); NEUTROPHILS % (AUTO) 71.8 %; PLT - PLATELET COUNT 140 10^3/uL (130-450); RED BLOOD COUNT 5.25 10^6/uL (4.70-6.10); RED CELL DISTRIBUTION WIDTH 12.1 % (12.0-15.0); WHITE BLOOD COUNT 5.9 x10^3/uL (4.8-10.8)
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
[2023-11-06] MEDS: CHERRY SYRUP 10 ML UDC PO ONE (11:11)
[2023-11-06] MEDS: DEXAMETHASONE 10 MG/ML VIAL PO STA (11:11)
[2023-11-06] MEDS: KETOROLAC 30 MG/ML VIAL IM STA (11:11)
[2023-11-06 11:18] LABS: ALBUMIN/GLOBULIN RATIO 1.6 (1.0-2.2); BILIRUBIN,TOTAL 1.3 mg/dL (0.2-1.0); CALCIUM 9.2 mg/dL (8.5-10.3); CREATININE 0.9 mg/dL (0.6-1.3); TOTAL PROTEIN 6.5 g/dL (6.4-8.9)
[2023-11-06 11:25] LABS: TROPONIN I HIGH SENSITIVITY 9.1 ng/L (2.3-19.7)
--- NOTE | 2023-11-06 12:41 | XRAY Report ---
PROCEDURE: Chest 1V INDICATIONS: chest pain TECHNIQUE: One view of the chest was acquired. COMPARISON: 10/18/2022 FINDINGS: Surgical changes and devices: Lower cervical spine discectomy and fusion plate and screw hardware Lungs and pleura: No pleural effusions or pneumothorax. Lungs are clear. Mediastinum: Mediastinal contours appear normal. Heart size is enlarged. Low lung volumes accentuat e pulmonary interstitium and heart size. Bones and chest wall: No suspicious bony lesions. Overlying soft tissues appear unremarkable. IMPRESSION: Cardiomegaly without vascular congestion Reviewed by: Lavon Glover MD on 11/06/2023 11:40 AM ARTURO Approved by: Lavon Glover MD on 11/06/2023 11:40 AM ARTURO Station ID: [id number]
[2023-11-06 13:27] VITALS: BP 156/98
[2023-11-06 14:05] VITALS: O2SAT 96
--- NOTE | 2023-11-06 14:12 | CT Report ---
PROCEDURE: CT abdomen pelvis without contrast INDICATIONS: LLQ pain TECHNIQUE: Helical axial CT of the abdomen and pelvis was obtained without intravenous contrast and reformatted in multiple planes. Radiation dose reduction was achieved utilizing automated exposure co ntrol or adjustment of mA and/or kV according to patient size. COMPARISON: 10/14/2022 FINDINGS: Lower thorax: The lung bases are clear. Heart size normal. No hiatal hernia. Liver: Normal in size and attenuation. No contour deformity present. Biliary system: No calcified cholelithiasis or pericholecystic inflammation. No evidence of bile du ct dilatation. Pancreas: Unremarkable without mass or inflammation evident. Spleen: Normal in size and density. Adrenals: Normal morphology and density. Reproductive system: Unremarkable as visualized. Urinary system: Normal renal size and attenuation. No renal calculi, hydronephrosis, or solid mass p resent. Urinary bladder unremarkable. Previously noted calculus has resolved. No hydronephrosis. Gastrointestinal system: The bowel appears unremarkable with no evidence of bowel obstruction or inf lammation. The stomach appears unremarkable. Normal appendix identified. Multiple diverticula arise from the sigmoid colon without evidence of diverticulitis. Peritoneal spaces: No mesenteric or retroperitoneal adenopathy. No free air. No free fluid. Vasculature: The IVC, aorta and iliac vasculature are unremarkable. Abdominal wall: Abdominal inguinal hernias containing fat without bowel involvement Musculoskeletal: Normal bone mineralization. No acute fractures. Degenerative disc disease and arth ropathy IMPRESSION: No acute CT findings in the abdomen and pelvis. Sigmoid diverticulosis without evidence of diverticulitis or obstruction. Reviewed by: Lavon Glover MD on 11/06/2023 1:11 PM [email or web address] Approved by: Lavon Glover MD on 11/06/2023 1:11 PM AKDT Station ID: [id number]
== END 2023-11-06 14:23 | disposition home or self-care (01) ==
LOC: EDUNIT# → ED 10:22
DX: R07.89 Other chest pain (principal); S39.011A Strain of muscle, fascia and tendon of abdomen, initial encounter; X58.XXXA Exposure to other specified factors, initial encounter
CPT/HCPCS: 36415; 71045; 74176; 80053; 83690; 84484; 85025; 93005; 96372; 99284; A9270

== ENCOUNTER 2023-12-16 10:13 | Outpatient (CLI) | payer MEDICAID, OTHER ==
--- NOTE | 2023-12-16 12:22 | XRAY Report ---
PROCEDURE: Cervical Spine 4-5V INDICATIONS: CERVICAL RADICULOPATHY, LEFT TECHNIQUE: 5 views of the cervical spine acquired. COMPARISON: None. FINDINGS: Bones: Remote ACDF at C5-C6. No evidence of hardware failure or loosening. No fractures or dislocati ons to the T1 level. Oblique images demonstrate significant multilevel bony foraminal narrowing, wit h multilevel uncovertebral joint osteophytes present. On the right, there is severe bony foraminal na rrowing at C3-C4 and C4-C5. On the left, there is moderate bony foraminal narrowing at C3-C4 and steph re bony foraminal narrowing at C4-C5 and C5-C6. Soft tissues: No prevertebral soft tissue swelling. Ossifications in the posterior soft tissues are consistent with remote trauma. IMPRESSION: 1.. Expected appearance of cervical fusion hardware 2. Extensive cervical spondylitic change. Findings include multilevel bony foraminal narrowing.. Reviewed by: Paul Pereyra MD on 12/16/2023 12:21 PM PDT Approved by: Paul Pereyra MD on 12/16/2023 12:21 PM PDT Station ID: [id number]
== END 2023-12-16 10:14 | disposition home or self-care (01) ==
LOC: DI.N 10:13
PROVIDERS: ATTEND Nurse Practitioner
DX: M47.812 Spondylosis without myelopathy or radiculopathy, cervical region (principal); Z98.1 Arthrodesis status